=== PATIENT | female | born 1970 | race African-American/Black ===

== ENCOUNTER 2016-06-28 12:59 | Emergency (ER) | payer SELFPAY ==
[~2016-06-28] VITALS: Ht 162.6 cm; Wt 100.0 kg
[2016-06-28 13:00] VITALS: BP 169/91; PULSE 87; RESP 12; TEMP 97.9; O2SAT 98
[2016-06-28] MEDS ORDERED: MEDR4PAK PO (13:36)
--- NOTE | 2016-06-28 13:37 | PD ---
HPI Chief Complaint: Pain: Acute or Chronic Time Seen by Provider: 13:35 Travel History International Travel<30 days: No Contact w/Intl Traveler<30days: No Traveled to known affect area: No History of Present Illness HPI 35-year-old female presents to the emergency department with complaint of bilateral knee pain from her rheumatoid arthritis flare 4 days. Denies fever, chills, nausea, vomiting. Denies erythema or edema to bilateral knees. Pain is worse with walking and bending her knees. Has had rheumatoid arthritis for the past 20 years and is requesting hydrocodone and a Medrol Dosepak. She has tried taking [id number] medications with no relief of symptoms. Denies paresthesias, loss of sensation, decreased range of motion, decreased strength to bilateral lower extremities. Does not have primary care provider. Allergies to Motrin and Ultram. No other modifying factors or associated signs and symptoms. PFSH Past Medical History Arthritis: Yes (ra) Tetanus Vaccination: < 5 Years ?: Not Past Surgical History Surgical History: No Previous Surgery Social History Alcohol Use: No Tobacco Use: No Substance Use: No Allergies-Medications (Allergen,Severity, Reaction): Coded Allergies: Motrin (Verified Allergy, Severe, 06/28/16) Ultram (Verified Allergy, Severe, 06/28/16) Reported Meds & Prescriptions Reported Meds & Active Scripts Active Medrol Dosepak (Methylprednisolone) 4 Mg Dspk 4 Mg PO DIRECTED Per Pharmacist direction Review of Systems Except as stated in HPI: all other systems reviewed are Neg Physical Exam Narrative GENERAL: Well-nourished, well-developed female patient, in no acute distress; afebrile, nontoxic-appearing SKIN: Warm and dry. HEAD: Atraumatic. Normocephalic. EYES: Pupils equal and round. No scleral icterus. No injection or drainage. ENT: Mucosa pink and moist. Airway patent. NECK: Trachea midline. CARDIOVASCULAR: Regular rate. RESPIRATORY: No accessory muscle use. GASTROINTESTINAL: Rounded. MUSCULOSKELETAL: Bilateral knees are nonedematous and nonerythematous; with full range of motion and flexion to 90; no point tenderness on palpation to the lateral, medial, patellar aspects. Bilateral lower extremity Sirs supple and non-tense with 2+ pedal pulses and sensory intact and without erythema or edema. Patient ambulatory. NEUROLOGICAL: Awake and alert. Oriented 3. No obvious cranial nerve deficits. Motor grossly within normal limits. Normal speech. PSYCHIATRIC: Appropriate mood and affect; insight and judgment normal. Data Data Last Documented VS Vital Signs Date Time Temp Pulse Resp B/P Pulse Ox O2 Delivery O2 Flow Rate FiO2 06/28/16 13:00 97.9 87 12 169/91 98 Room Air MDM Medical Decision Making Medical Screen Exam Complete: Yes Emergency Medical Condition: Yes Medical Record Reviewed: Yes Differential Diagnosis Rheumatoid arthritis flare, narcotic seeking, knee pain Narrative Course 35-year-old female with history of rheumatoid arthritis to bilateral knees with complaint of flare 4 days. Patient is afebrile. She denies fever, chills, nausea, vomiting. Bilateral lower extremities are supple and non-tense with 2+ pedal pulses and sensory intact without erythema or edema. Bilateral knees are without erythema or edema. Patient requesting hydrocodone and Medrol Dosepak. I offered the patient and nonnarcotic and she declined. Patient became aggravated, demanding a prescription for hydrocodone. I had Dr. Pettit, my attending physician, speak with the patient in regards to her request for hydrocodone. The patient left without discharge instructions and prescriptions. Diagnosis Primary Impression: Rheumatoid arthritis flare Referrals: Primary Care Physician Patient Instructions: General Instructions, Rheumatoid Arthritis (ED) Additional Instructions: Tylenol as directed and as needed for pain Follow-up with primary care provider Return to the emergency department immediately with worsening of symptoms Med/Other Pt SpecificInfo: Prescription(s) given Scripts Methylprednisolone Dosepak (Medrol Dosepak)4 Mg Dspk4 Mg PO DIRECTED #1 DSPK Ref 0 Per Pharmacist direction Prov:Lamar Jackson 06/28/16 Disposition: 01 DISCHARGE HOME Condition: Stable Lamar Jackson Jun 28, 2016 13:37
[2016-06-28] MEDS ORDERED: HYDR-3533 PO (13:38)
== END 2016-06-28 14:36 | disposition home or self-care (01) ==
LOC: NEPB 12:59
DX: M06.9 Rheumatoid arthritis, unspecified (principal); M25.561 Pain in right knee; M25.562 Pain in left knee
CPT/HCPCS: 99282